=== PATIENT | male | born 1960 | race Two or more races ===

== ENCOUNTER 2020-11-21 14:06 | Emergency (ER) | payer SELFPAY ==
[~2020-11-21] VITALS: Ht 167.6 cm; Wt 78.3 kg
--- NOTE | 2020-11-21 14:26 | NUR ---
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
--- NOTE | 2020-11-21 14:46 | NUR ---
PT SITTING UP IN BED, RESPIRATIONS EVEN AND UNLABORED ON RA. ATTEMPT TO CALL SISTER, PER PT REQUEST. NO ANSWER OF YET. AWAITING ERMD EVAL.
[2020-11-21] MEDS ORDERED: MECLIZINE CHEWABLE 25 MG TAB ONE (15:15)
--- NOTE | 2020-11-21 15:26 | NUR ---
SISTER AMBROSE QUIGLEY [phone]
[2020-11-21] MEDS ORDERED: MECLIZINE CHEWABLE 25 MG TAB PO ONE (15:30)
[2020-11-21] MEDS ORDERED: SODIUM CHLORIDE 0.9% 1,000ML IVBOLUS ONE (15:30)
--- NOTE | 2020-11-21 15:35 | NUR ---
IVF INFUSING PER EMAR. SISTER AT BEDSIDE. NAD NOTED AT THIS TIME. PT DENIES DIZZINESS.
[2020-11-21 15:41] LABS: ALBUMIN 3.7 g/dL (3.4-5.0); ANION GAP 6 mmol/L (5-15); CALCIUM 9.1 mg/dL (8.5-10.1); CHLORIDE 107 mmol/L (98-107); CREATININE 0.84 mg/dL (0.7-1.3)
[2020-11-21 15:46] LABS: BASOPHILS % (AUTO) 1 % (0-1); EOSINOPHILS % (AUTO) 1 % (1-7); LYMPHOCYTES % (AUTO) 18 % (22-44); MEAN CORPUSCULAR HGB CONC 34.3 g/dL (33.2-36.2); MEAN PLATELET VOLUME 8.3 fL (7.4-10.4); MONOCYTES % (AUTO) 6 % (2-9); NEUTROPHILS % (AUTO) 75 % (42-75); PLATELET COUNT 307 x10^3/uL (130-400); RED BLOOD COUNT 5.44 x10^6/uL (4.38-5.82)
[2020-11-21 15:50] LABS: MD NO
[2020-11-21 17:09] VITALS: BP 127/76
== END 2020-11-21 17:14 | disposition home or self-care (01) ==
LOC: ED 17:00
DX: R42 Dizziness and giddiness (principal); R11.2 Nausea with vomiting, unspecified; R19.7 Diarrhea, unspecified; R51.9 Headache, unspecified
CPT/HCPCS: 36415; 70450; 80048; 82040; 85025; 93005; 96360; 96361; 99285; J7030; 82962